=== PATIENT | female | born 1995 | race Caucasian/White ===

== ENCOUNTER 2020-06-25 13:18 | Emergency (ER) | payer BC ==
[2020-06-25 13:49] VITALS: BP 148/97; PULSE 89; TEMP 98.9; BMI 29.0
[2020-06-25 14:17] LABS: BASO % 2.3 % (0-2.0); EOS % 2.2 % (0-4.5); HEMATOCRIT 42.3 % (32.4-45.2); HEMOGLOBIN 14.3 GM/dl (10.7-15.3); LYMPH % 21.5 % (8-40); MCH 29.5 pg (25.7-33.7); MCHC 33.8 g/dl (32.0-36.0); MEAN CELL VOLUME 87.3 fl (80-96); MONO % 7.4 % (3.8-10.2); NEUT % 66.6 % (42.8-82.8); PLATELET COUNT 258 K/MM3 (134-434); RBC 4.84 M/mm3 (3.60-5.2); RDW 13.6 % (11.6-15.6); WHITE BLOOD COUNT 9.8 K/mm3 (4.0-10.8)
[2020-06-25 14:25] LABS: ALBUMIN 4.3 g/dl (3.4-5.0); BILIRUBIN,TOTAL 0.9 mg/dl (0.2-1); CALCIUM 8.8 mg/dl (8.5-10); CREATININE 0.7 mg/dl (0.55-1.3); TOT PROT 7.3 g/dl (6.4-8.2)
[2020-06-25] MEDS ORDERED: KETOROLAC TROMETHAMINE 30 MG/1 ML VIAL IM ONE (14:56)
[2020-06-25] MEDS ORDERED: KETOROLAC TROMETHAMINE 30 MG/1 ML VIAL ONE (14:58)
== END 2020-06-25 15:25 | disposition home or self-care (01) ==
LOC: FER 13:18
PROC: 3E0233Z Introduction of Anti-inflammatory into Muscle, Percutaneous Approach (ICD-10-PCS; principal; 2020-06-25)
DX: R07.89 Other chest pain (principal)
CPT/HCPCS: 36415; 71046-TC-FY; 80053; 84484; 85025; 93005; 99284-25